=== PATIENT | female | born 2000 | race Caucasian/White ===

== ENCOUNTER 2025-09-07 20:36 | Emergency (ER) | payer OTHER ==
[2025-09-07 21:01] LABS: Pregnancy Test - Urine (BHCG) Negative (Negative); Pregu Control Background? CLEAR/WHITE (CLR/WHITE); Pregu Control Bar Appear? YES (CONTROL BAR)
[2025-09-07 21:02] LABS: Glucose, Urine (Dipstick) Normal (Negative); Leukocyte 100 (Negative); Protein, Urine (Dipstick) 100 mg/dl (Neg-Trace); Specific Gravity, Urine 1.025 (1.005-1.030)
[2025-09-07] MEDS ORDERED: Tranexamic Acid 1,000 MG/10 ML VIAL ONE (21:03)
[2025-09-07 21:08] LABS: RBC/HPF 21-50 HPF (0-3)
[2025-09-07 21:09] LABS: Bacteria/HPF 2+ HPF (None Seen); CAUTI Indications for Culture Pregnancy
[2025-09-07 21:10] LABS: Mucous/LPF 2+ LPF (<2+)
[2025-09-07 21:11] LABS: Urine Culture Reflex Yes Yes
[2025-09-07 21:15] LABS: #Basophils 0.03 10x3/uL (0.0-0.2); #Eosinophils 0.20 10x3/uL (0.0-0.5); #Monocytes 0.82 10x3/uL (0.0-1.1); #Neutrophils 4.81 10x3/uL (1.5-8.4); %Basophils 0.4 % (0.0-2.0); %Eosinophils 2.7 % (0.0-6.0); %Lymphocytes 21.6 % (18.0-47.0); %Monocytes 10.9 % (0.0-10.0); %Neutrophils 64.1 % (40.0-75.0); Hematocrit 39.5 % (34.9-44.5); Hemoglobin 13.0 g/dL (12.0-15.5); Mean Corpuscular Hemoglobin 25.0 pg (27.0-33.0); Mean Corpuscular Volume 76.0 fL (81.6-98.3); Platelet Count 301 10x3/uL (150-450); Red Blood Cell (RBC) Count 5.20 10x6/uL (3.90-5.03); White Blood Cell (WBC) Count 7.50 10x3/uL (3.5-10.5)
[2025-09-07 21:22] LABS: INR-International Normal Ratio 1.1; Prothrombin Time 12.0 sec (9.5-12.1)
[2025-09-07 21:26] LABS: ALT (SGPT) 29 U/L (Less than 34); AST (SGOT) 28 U/L (11-34); Albumin 4.5 g/dL (3.1-4.5); Alkaline Phosphatase 113 U/L (40-110); Anion Gap 16 mmol/L (10-20); BUN (Urea Nitrogen) 6 mg/dL (7.0-18.7); Bilirubin, Total 0.4 mg/dL (0.3-1.2); Calc. Creatinine Clearance 0 mL/min (70-130); Calcium 9.4 mg/dL (7.8-10.44); Carbon Dioxide 21 mmol/L (22-29); Chloride 108 mmol/L (98-107); Globulin 3.1 g/dL (2.4-3.5); Glucose 99 mg/dL (70-105); Potassium 3.6 mmol/L (3.5-5.1); Sodium 141 mmol/L (136-145)
== END 2025-09-08 00:12 | disposition home or self-care (01) ==
LOC: CSHERS 20:36
DX: N92.0 Excessive and frequent menstruation with regular cycle (principal); Z75.3 Unavailability and inaccessibility of health-care facilities
CPT/HCPCS: 76856; 80053; 81001; 81025; 85025; 85610; 87086; 96374